=== PATIENT | female | born 1960 | race Caucasian/White ===

== ENCOUNTER 2023-01-07 10:27 | Outpatient (CLI) | payer OTHER, SELFPAY ==
--- NOTE | 2023-01-07 10:45 | CRLHL7_ITS ---
For Patients: As a result of the Century Cures Act, medical imaging exams and procedure reports are released immediately into your electronic medical record. You may view this report before your referring provider. If you have questions, please contact your health care provider. INDICATION: Postmenopausal bleeding COMPARISON: none TECHNIQUE: 2D umana scale and color Doppler images were acquired of the pelvis using a transabdominal and transvaginal approach. FINDINGS: Sonographic images demonstrate a normal size and smooth outer contour of the uterus. Uterus measures 9.6 cm in length by 4.7 cm in AP diameter by 4.8 cm in transverse dimension. The myometrium has a heterogeneous echotexture. The endometrial lining measures 8 mm in composite thickness. Incidental cervical nabothian cysts are present. The right ovary measures 3.2 x 1.2 x 1.2 cm in size and the left ovary is not visualized. The right ovary demonstrates normal arterial and venous blood flow on color Doppler analysis. There are no suspicious fluid collections within the cul-de-sac. IMPRESSION: Endometrial thickness 8 millimeters. Dictated by Jair Hilliard MD @ 01/07/2023 11:34:15 AM (Electronically Signed)
== END 2023-01-07 10:28 | disposition home or self-care (01) ==
LOC: US 10:30
PROVIDERS: Visit Provider Obstetrics & Gynecology
DX: N95.0 Postmenopausal bleeding (principal); R93.89 Abnormal findings on diagnostic imaging of other specified body structures
CPT/HCPCS: 76830; 76856

== ENCOUNTER 2023-01-14 11:52 | Outpatient (CLI) | payer OTHER, SELFPAY | END 2023-01-14 11:53 | disposition home or self-care (01) | PROVIDERS: Visit Provider Obstetrics & Gynecology | DX: N95.0 Postmenopausal bleeding (principal); Z12.4 Encounter for screening for malignant neoplasm of cervix | CPT/HCPCS: 84443 ==

== ENCOUNTER 2023-03-12 12:39 | Outpatient (CLI) | payer OTHER, SELFPAY ==
--- NOTE | 2023-03-12 13:00 | CRLHL7_ITS ---
For Patients: As a result of the Century Cures Act, medical imaging exams and procedure reports are released immediately into your electronic medical record. You may view this report before your referring provider. If you have questions, please contact your health care provider. BILATERAL SCREENING MAMMOGRAM WITH COMPUTER-AIDED DETECTION AND TOMOSYNTHESIS TECHNIQUE: CC and MLO views were obtained. These mammographic images have been obtained using full-field digital technique. These mammographic images were interpreted with the benefit of computer-aided detection. Breast Tomosynthesis was used in this interpretation. COMPARISON FILM: 05/25/15, 12/26/11, 12/30/07. FINDINGS: The breasts are heterogeneously dense, which may obscure small masses IMPRESSION: There is no radiographic evidence for malignancy. ASSESSMENT: BI-RADS Category 1: Negative RECOMMENDATION: Routine screening mammogram in 1 year. A lay language report of this examination will be provided to the patient. Jair Hilliard M.D. Diagnostic Radiologist [email or web address] REMY/Dictated by: Jair Hilliard MD @ 03/13/2023 1:05:00 PM (Electronically Signed)
== END 2023-03-12 12:40 | disposition home or self-care (01) ==
LOC: MAMMO 12:40
PROVIDERS: Visit Provider Obstetrics & Gynecology
DX: Z12.31 Encounter for screening mammogram for malignant neoplasm of breast (principal); R92.2 Inconclusive mammogram
CPT/HCPCS: 77063; 77067

== ENCOUNTER 2024-04-20 10:17 | Outpatient (CLI) | payer OTHER, SELFPAY | END 2024-04-20 10:18 | disposition home or self-care (01) | PROVIDERS: Visit Provider Physician Assistant Medical | DX: M81.0 Age-related osteoporosis without current pathological fracture (principal); G47.9 Sleep disorder, unspecified; Z13.220 Encounter for screening for lipoid disorders; Z13.29 Encounter for screening for other suspected endocrine disorder | CPT/HCPCS: 80053; 80061; 82728; 84443 ==

== ENCOUNTER 2024-05-10 12:17 | Outpatient (CLI) | payer OTHER, SELFPAY ==
--- NOTE | 2024-05-10 12:45 | CRLHL7_ITS ---
For Patients: As a result of the Century Cures Act, medical imaging exams and procedure reports are released immediately into your electronic medical record. You may view this report before your referring provider. If you have questions, please contact your health care provider. DXA BONE MINERAL DENSITY STUDY Current height (in): 68.0. Weight (lb): 154.0. Menopause age: 40. Ethnicity: White. Reason for exam: Age-related osteoporosis without current pathology. 1. Have you had a previous hip or vertebral fracture? No. 2. Have you had any fractures during your adult life which did not result from significant trauma (e.g., auto accident)? No. 3. Did either of your parents have a hip fracture? Yes. 4. Do you smoke? No. 5. Have you ever taken Glucocorticoids? No. 6. Do you have rheumatoid arthritis? No. 7. Do you have secondary osteoporosis? No. 8. Do you drink 3 or more alcoholic drinks per day? No. 9. Are you being treated for osteoporosis? No. 10. Have you ever taken any of the following medications: Actonel, Evista, Fosamax, Miacalcin, Reclast, Boniva, Forteo, HRT (i.e. estrogen/hormone therapy), Protelos, Prolia, Vitamin D, Calcium, other ??? please specify. ANSWER: Yes, vitamin D, calcium. 11. Do you have any of the following medical conditions: Anorexia or bulimia, asthma or emphysema, end stage renal disease, hyperparathyroidism, any seizure disorders, cancer, inflammatory bowel diseases, hysterectomy, other ??? please specify. ANSWER: No. 12. What was your maximum height (inches)? 69. 13. Do you perform weight bearing exercise regularly? Yes. . 14. Do you regularly consume dairy products? Yes. 15. Do you drink caffeinated beverages? Yes. 16. At what age did your period start? 13. 17. Are you premenopausal? No. 18. How many full-term pregnancies have you had? 5. 19. Have you ever missed your period for more than 6 months in a row (not including or menopause)? No. TECHNIQUE: Bone mineral density study was performed using the [employer]. FINDINGS: The results of the study expressed as bone mineral density (BMD) are as follows: Lumbar spine L1 to L4: BMD: 0.827 g/cm2. T-score: -2.0. Z-score: -0.2 Neck Left: BMD: 0.629 g/cm2. T-score: -2.0. Z-score: -0.5 Right: BMD: 0.654 g/cm2. T-score: -1.8. Z-score: -0.3 Total Left: BMD: 0.790 g/cm2. T-score: -1.2. Z-score: -0.0 Right: BMD: 0.798 g/cm2. T-score: -1.2. Z-score: 0.0 IMPRESSION: Osteopenia. FRAX 10-year Fracture Risk Major Osteoporotic Fracture: 19 percent Hip Fracture: 1.5 percent Reported Risk Factors: [place] () Neck BMD = 0.629, BMI = 23.4 Jair Hilliard M.D. Diagnostic Radiologist [email or web address] Transcribed: 12:39 pm DW/Dictated by: Jair Hilliard MD @ 05/11/2024 12:12:00 PM (Electronically Signed)
--- NOTE | 2024-05-10 13:20 | CRLHL7_ITS ---
For Patients: As a result of the Century Cures Act, medical imaging exams and procedure reports are released immediately into your electronic medical record. You may view this report before your referring provider. If you have questions, please contact your health care provider. BILATERAL SCREENING MAMMOGRAM WITH COMPUTER-AIDED DETECTION AND TOMOSYNTHESIS TECHNIQUE: CC and MLO views were obtained. These mammographic images have been obtained using full-field digital technique. These mammographic images were interpreted with the benefit of computer-aided detection. Breast Tomosynthesis was used in this interpretation. COMPARISON FILM: 03/12/23, 05/25/15, 12/26/11. FINDINGS: The breasts are heterogeneously dense, which may obscure small masses. IMPRESSION: There is no radiographic evidence for malignancy. ASSESSMENT: BI-RADS Category 1: Negative RECOMMENDATION: Routine screening mammogram in 1 year. A lay language report of this examination will be provided to the patient. Jair Hilliard M.D. Diagnostic Radiologist [email or web address] SP/Dictated by: Jair Hilliard MD @ 05/11/2024 9:40:00 AM (Electronically Signed)
== END 2024-05-10 12:18 | disposition home or self-care (01) ==
PROVIDERS: Visit Provider Physician Assistant Medical
DX: Z12.31 Encounter for screening mammogram for malignant neoplasm of breast (principal); R92.333 Mammographic heterogeneous density, bilateral breasts; M81.0 Age-related osteoporosis without current pathological fracture; M85.89 Other specified disorders of bone density and structure, multiple sites
CPT/HCPCS: 77063; 77067; 77080

== ENCOUNTER 2024-11-22 10:30 | Outpatient (CLI) | payer MEDICARE, SELFPAY ==
--- NOTE | 2024-11-22 10:45 | CRLHL7_ITS ---
For Patients: As a result of the Century Cures Act, medical imaging exams and procedure reports are released immediately into your electronic medical record. You may view this report before your referring provider. If you have questions, please contact your health care provider. INDICATION: Postmenopausal bleeding COMPARISON: None. TECHNIQUE: 2D umana-scale and color Doppler images were acquired of the pelvis using a transabdominal and transvaginal approach. Transvaginal imaging performed to better visualize the endometrial stripe and ovaries. FINDINGS: Sonographic images demonstrate a normal size and smooth outer contour of the uterus. Uterus measures 9.0 cm in length by 2.9 cm in AP diameter by 4.1 cm in transverse dimension. The myometrium has a heterogeneous echotexture. The endometrial lining measures 3.4 mm in composite thickness. The right ovary is not visualized and the left ovary measures 2.7 x 1.3 x 1.5 cm. The left ovary demonstrates normal arterial and venous blood flow on color Doppler analysis. There are no suspicious fluid collections within the cul-de-sac. IMPRESSION: Endometrial thickness 3.4 millimeters. Dictated by Jair Hilliard MD @ 11/22/2024 12:22:59 PM (Electronically Signed)
== END 2024-11-22 10:31 | disposition home or self-care (01) ==
PROVIDERS: Visit Provider Obstetrics & Gynecology
DX: N95.0 Postmenopausal bleeding (principal); R93.89 Abnormal findings on diagnostic imaging of other specified body structures
CPT/HCPCS: 76830; 76856

== ENCOUNTER 2024-12-20 06:00 | Day surgery (SDC) | payer MEDICARE, SELFPAY ==
[2024-12-20 06:28] VITALS: BMI 23.5
[2024-12-20] MEDS: LACTATED RINGERS 1000 ML 1,000 ML 100 ML IV (06:34)
[2024-12-20] MEDS: SODIUM CHLORIDE 0.9 % (FLUSH) 10 ML SYRINGE IVF (06:34)
[2024-12-20 06:45] VITALS: BP 158/75; PULSE 54; RESP 16; TEMP 36.1; O2SAT 98
--- NOTE | 2024-12-20 07:28 | W.PM.H&PU ---
History & Physical Update History & Physical Update H&P Reviewed and patient assessed: No changes noted
[2024-12-20] MEDS: BUPIVACAINE 0.5% 30 ML INJECTION (07:46)
[2024-12-20] MEDS: SILVER NITRATE APPLICATOR 1 EACH STICK..EA. TOPICAL (08:00)
[2024-12-20 08:08] VITALS: BP 159/82; PULSE 54; RESP 16; TEMP 36.3; O2SAT 97
--- NOTE | 2024-12-20 08:08 | SUR.OPER ---
deficit= 80
--- NOTE | 2024-12-20 08:10 | P.ANES_ITS ---
Anesthesia Charges Start Date/Time Anesthesia Start Date: 12/20/24 Anesthesia Start Time: 07:28 Stop Date/Time Anesthesia Stop Date: 12/20/24 Anesthesia Stop Time: 08:12 Coding CPT Codes CPT Codes: ANESTH HYSTEROSCOPE/GRAPH - 67552 ([id number]) P1 - NORMAL HEALTHY PATIENT, QK - INFANTRY OFFICER 2-4 CNCRNT ANES PROC, QX - HOSIERY MENDER SVC W/ MED DIRECTION
--- NOTE | 2024-12-20 08:10 | W.ANESCHARGE ---
Anesthesia Charges Start Date/Time Anesthesia Start Date: 12/20/24 Anesthesia Start Time: 07:28 Stop Date/Time Anesthesia Stop Date: 12/20/24 Anesthesia Stop Time: 08:12 Coding CPT Codes CPT Codes: ANESTH HYSTEROSCOPE/GRAPH - 61960 ([id number]) P1 - NORMAL HEALTHY PATIENT, QK - JAIL MANAGER 2-4 CNCRNT ANES PROC, QX - URBAN PLANNER SVC W/ MED DIRECTION
[2024-12-20 08:15] VITALS: BP 164/86; PULSE 50; RESP 16; O2SAT 97
--- NOTE | 2024-12-20 08:17 | P.GYNPRC_ITS ---
Procedure Note Date of procedure: 12/20/24 Will [facility] bill your pro fee for this procedure?: Yes Pre-op diagnosis: Postmenopausal bleeding Post-op diagnosis: Postmenopausal bleeding Procedure: Hysteroscopy, dilation and curettage Complications: None Surgeon: Jared Blanton MD Estimated blood loss (mL): 5 IV fluids (mL): 300 Urine Output (mL): 100 Pathology: specimen obtained, sent to pathology (Encometrial curettings) Condition: stable Disposition: same day Findings: Findings: Bimanual exam: Anteverted uterus of about 9cm, regular contour, no adnexal masses. Speculum exam: cervix with atrophy changes and flushed to the vagina. Vagina qIntrauterine cavity: Bilateral cornual openings seen, mildly thickened endometrium mostly on the posterior uterine wall. Otherwise, no gross abnormalities. Procedure Description: Patient was taken to the OR were MAC anesthesia was administered without difficulty. She was placed in the dorsal lithotomy position with Kenny type stirrups. An exam under anesthesia as described above. Patient was then p repared and draped in the normal sterile fashion. In and out catheter utilized to empty bladder. A bivalved speculum was inserted in the posterior aspect of the vagina. 0.5% Bupivicaine was injected at 2 and 11 o'clock a total of about 6mL utilized. A single-tooth tenaculum was used to grasp the anterior lip of the cervix. The cervical os was sequentially dilated to accommodate the 5 mm TrueClear hysteroscope using Hegar dilators. A 5 mm 30 degree TrueClear hysteroscope was introduced under direct visualization, and the uterus was distended with normal saline. Findings as above. Soft tissue incisor blade from TrueClear hysteroscope system was introduced under direct visualization and endometrial curettings performed. Hysteroscope removed under direct visualization. Tenaculum was removed from the cervix and good hemostasis was noted at puncture sites after application of silver nitrate. Patient tolerated the procedure well. Instrument and sponge counts were correct x2. The patient was awakened from MAC anesthesia and taken to the recovery room in a stable condition. The patient will go home after recovering from anesthesia and meeting all the criteria for discharge. She was given instruction regarding follow-up visit in 2 weeks at [facility] and instructions for pain medication if needed. Fluid deficit: 80mL
[2024-12-20 08:30] VITALS: BP 161/84; PULSE 51; RESP 16; O2SAT 97
[2024-12-20 08:45] VITALS: BP 162/72; PULSE 51; RESP 16; O2SAT 97
--- NOTE | 2024-12-20 09:24 | P.ANES_ITS ---
Anesthesia Charges Start Date/Time Anesthesia Start Date: 12/20/24 Anesthesia Start Time: 07:28 Stop Date/Time Anesthesia Stop Date: 12/20/24 Anesthesia Stop Time: 08:12 Coding CPT Codes CPT Codes: ANESTH HYSTEROSCOPE/GRAPH - 23708 ([id number]) P1 - NORMAL HEALTHY PATIENT, QK - PRINCIPAL STATISTICAL SCIENTIST 2-4 CNCRNT ANES PROC, QX - WINDOWS 7 DEPLOYMENT LEAD SVC W/ MED DIRECTION
--- NOTE | 2024-12-20 09:24 | W.ANESCHARGE ---
Anesthesia Charges Start Date/Time Anesthesia Start Date: 12/20/24 Anesthesia Start Time: 07:28 Stop Date/Time Anesthesia Stop Date: 12/20/24 Anesthesia Stop Time: 08:12 Coding CPT Codes CPT Codes: ANESTH HYSTEROSCOPE/GRAPH - 98506 ([id number]) P1 - NORMAL HEALTHY PATIENT, QK - WIRE DROPPER 2-4 CNCRNT ANES PROC, QX - INDUSTRIAL MILLWRIGHT SVC W/ MED DIRECTION
== END 2024-12-20 09:23 | disposition home or self-care (01) ==
LOC: OR 06:02
PROVIDERS: Visit Provider Obstetrics & Gynecology
PROC: 0UDB8ZZ Extraction of Endometrium, Via Natural or Artificial Opening Endoscopic (ICD-10-PCS; CPT 58558; principal; 2024-12-20 07:15)
DX: N95.0 Postmenopausal bleeding (principal)
CPT/HCPCS: 58558; 00952; A9270; C1782; J0665; J1100; J2250; J2405; J2704; J3010; J7120

== ENCOUNTER 2025-05-16 18:42 | Outpatient (CLI) | payer MEDICARE, SELFPAY ==
--- NOTE | 2025-05-16 19:20 | CRLHL7_ITS ---
For Patients: As a result of the Century Cures Act, medical imaging exams and procedure reports are released immediately into your electronic medical record. You may view this report before your referring provider. If you have questions, please contact your health care provider. INDICATION: BILATERAL SCREENING MAMMOGRAM, ASYMPTOMATIC 64 Y/O FEMALE COMPARISON: 05/10/2024, 03/12/2023, 05/25/2015 TECHNIQUE: Digital mammogram in CC and MLO projections including computer-aided detection (CAD) and tomosynthesis. BREAST COMPOSITION: The breasts are heterogeneously dense, which may obscure small masses. FINDINGS: No suspicious findings. ASSESSMENT: BI-RADS 2 Benign RECOMMENDATION: Annual screening mammogram. A lay language report of this examination will be provided to the patient. Dictated by: Jair Hilliard MD @ 05/17/2025 10:05:37 (Electronically Signed)
== END 2025-05-16 18:43 | disposition home or self-care (01) ==
LOC: MAMMO 18:43
PROVIDERS: Visit Provider Obstetrics & Gynecology
DX: Z12.31 Encounter for screening mammogram for malignant neoplasm of breast (principal); R92.333 Mammographic heterogeneous density, bilateral breasts
CPT/HCPCS: 77063; 77067